=== PATIENT | male | born 1975 | race Caucasian/White ===

== ENCOUNTER 2019-07-01 10:16 | Emergency (ER) | payer OTHER, SELFPAY ==
[2019-07-01 10:25] VITALS: BP 157/99; PULSE 75; RESP 16; TEMP 36.6; O2SAT 99; BMI 32.1
[2019-07-01 11:10] VITALS: BP 142/85; PULSE 72; RESP 13; O2SAT 97
[2019-07-01 11:35] VITALS: BP 140/82; PULSE 82; RESP 17; O2SAT 98
[2019-07-01 11:42] LABS: Add Manual Diff / Slide Review NO; Basophils Absolute Auto 100 /uL (0-100); Basophils Percent Auto 0.5 % (0-2); Eosinophils Absolute Auto 0 /uL (0-450); Eosinophils Percent Auto 0.2 % (2-4); Hemoglobin 15.4 g/dL (13.5-17.5); Lymphocytes Absolute Auto 1400 /uL (1100-4500); Lymphocytes Percent Auto 9.7 % (25-40); Mean Corpuscular Hemoglobin 29.9 PG (26-34); Mean Corpuscular Volume 85.4 fL (80-100); Monocytes Absolute Auto 700 /uL (0-900); Monocytes Percent Auto 4.6 % (3-14); Neutrophils Absolute Auto 12100 /uL (1500-7000); Platelet Count 277 X10^3/uL (150-400); Red Blood Cell Count 5.14 X10^6/uL (4.5-5.9); Red Cell Distribution Width 13.1 % (11.6-14.8); White Blood Cell Count 14.3 X10^3/uL (4.5-11.0)
[2019-07-01 11:47] LABS: Alanine Aminotransferase 20 IU/L (<50); Albumin 5.1 g/dL (3.5-5.0); Albumin Globulin Ratio 1.5 (1.0-2.8); Alkaline Phosphatase 44 U/L (38-126); Aspartate Aminotransferase 29 IU/L (17-59); BUN Creatinine Ratio 18.6 (6-22); Bilirubin Total 0.7 mg/dL (0.2-1.3); Blood Urea Nitrogen 13 mg/dL (9-20); Calcium 10.1 mg/dL (8.4-10.2); Carbon Dioxide 29 mmol/L (22-32); Chloride 102 mmol/L (98-107); Estimated Glomerular Filt Rate > 60.0 mL/min (>60); Globulin 3.3 g/dL (1.7-4.1); Glucose 131 mg/dL (70-100); HEMOLYSIS 34 (0-50); Potassium 4.2 mmol/L (3.4-5.1); Sodium 141 mmol/L (137-145); Total Protein 8.4 g/dL (6.3-8.2)
--- NOTE | 2019-07-01 11:49 | DI.CT.S_ITS ---
PROCEDURE: CT HEAD/BRAIN WO CON INDICATIONS: dizziness and nausea, no hx of vertigo TECHNIQUE: Noncontrast 4.5 mm thick angled axial sections acquired from the foramen magnum to the vertex, with coronal and sagittal reformats. For radiation dose reduction, the following was used: automated exposure control, adjustment of mA and/or kV according to patient size. COMPARISON: None. FINDINGS: Image quality: Excellent. CSF spaces: Basal cisterns are patent. No extra-axial fluid collections. Ventricles are normal in size and shape. Brain: No midline shift. No intracranial masses or hemorrhage. Rogers-white matter interface is normal. Skull and face: Calvarium and visualized facial bones are intact, without suspicious lesions. Sinuses: Visualized sinuses and mastoids are clear. IMPRESSION: No acute intracranial disease process. Dictated by: Mimi Vera MD, PhD on 07/01/2019 at 12:19 Approved by: Mimi Vera MD, PhD on 07/01/2019 at 12:21
--- NOTE | 2019-07-01 11:49 | DI.RAD.S_ITS ---
PROCEDURE: XR CHEST 2V INDICATIONS: chest pain TECHNIQUE: 2 views of the chest were acquired. COMPARISON: None. FINDINGS: Surgical changes and devices: None. Lungs and pleura: Low lung volumes. Lungs appear clear. No pleural effusions or pneumothorax. Mediastinum: Mediastinal contours are normal. Heart size is normal. Bones and chest wall: No suspicious bony abnormalities. Soft tissues appear unremarkable. IMPRESSION: No acute cardiopulmonary abnormality. Dictated by: Albino Barrios M.D. on 07/01/2019 at 12:08 Approved by: Albino Barrios M.D. on 07/01/2019 at 12:08
[2019-07-01 12:06] LABS: D Dimer < 200 ng/mL (<230)
[2019-07-01] MEDS: ONDANSETRON 4 MG/2 ML INJ IV (12:11)
[2019-07-01] MEDS: diazePAM 10 MG/2 ML SYRINGE 2 MG IV (12:11)
[2019-07-01 12:14] VITALS: BP 140/83; PULSE 73; RESP 16; O2SAT 95
[2019-07-01 12:15] LABS: Creatine Kinase 97 U/L (55-170)
[2019-07-01 12:29] LABS: Troponin I < 0.012 ng/mL (0.01-0.034)
--- NOTE | 2019-07-01 13:17 | ED_ITS ---
HPI - Dizziness <Carlos MunozJUNIOR - Last Filed: 07/02/19 02:53> General Chief Complaint: Dizziness Stated Complaint: Dizzy,nausea Time Seen by Provider: 07/01/19 11:31 Source: patient Mode of arrival: Ambulatory Limitations: no limitations History of Present Illness HPI Narrative: This is 43-year-old gentleman, nonsmoker, who presents to ED with significant other with chief complain of dizziness. Patient reports he has experienced intermittent mild room spinning sensation which started last weekend. However, when patient woke up this morning he felt severe spinning sensation which progressively when he was taking a shower. Patient reports associated nausea and feeling sweaty symptoms but no vomiting. Patient reports room spinning sensation gets worse with the movements of head and eyes. Patient denies recent cold symptoms or ear pressure. Patient also states he had intermittent left-sided chest pressure last couple of months and heartburn sensation. Patient reports taking deep breaths increases chest discomfort. Patient denies history of blood clots or recent long travel. Patient denies breathing difficulty, history of GERD. Patient has history of hypertension and denies being evaluated by his primary care physician for this. Related Data Home Medications Medication Instructions Recorded Confirmed losartan-hydrochlorothiazide 1 tab PO DAILY 07/01/19 07/01/19 multivitamin 1 tab PO DAILY 07/01/19 07/01/19 Previous Rx's Medication Instructions Recorded meclizine 25 mg PO QID PRN #14 tab 07/01/19 ondansetron HCl [Zofran] 4 mg PO Q6H PRN #10 tab 07/01/19 Allergies Allergy/AdvReac Type Severity Reaction Status Date / Time No Known Drug Allergies Allergy Verified 07/01/19 10:33 Review of Systems <Carlos Munoz SALES TRAINING MANAGER - Last Filed: 07/02/19 02:53> Review of Systems Narrative: General: Denies fever, chills, fatigue, malaise, sweats. HEENT: Denies sinus pain, ear pain, sore throat, difficulty swallowing, dizziness. Respiratory: Denies dyspnea, cough, wheezing, hemoptysis, sputum. Cardiovascular: See HPI Gastrointestinal: Reports nausea. Denies vomiting, abdominal pain, diarrhea, constipation, melena. : Denies dysuria, frequency, incontinence, hematuria, urinary retention. Musculoskeletal: Denies weakness, joint pain or bony pain. Skin: Denies rash, skin lesions, or other. Neurologic: See HPI Psychiatric: No concerning psychosocial issues. 12-point review of systems is negative except for those stated above. Patient History <Carlos SueJUNIOR weinstein - Last Filed: 07/02/19 02:53> Social History Smoking Status: Never smoker alcohol intake frequency: holidays/special occasions only Substance Use Type: does not use Exam <Carlos SueJUNIOR weinstein - Last Filed: 07/02/19 02:53> Narrative Exam Narrative: GEN: Alert, oriented x 3, well appearing and nourished, and in no acute distress. Head: Normal cephalic, atraumatic. No scalp or temporal tenderness, palpable mass or rash. EYES: Pupils are equal, round, and reactive to light and accommodation. Extraocular muscles are intact bilaterally. There is no subconjunctival hemorrhage, exudate and sclera non-icteric. ENT: Bilateral auditory canals and tympanic membranes clear. Hearing grossly intact. Nose without bleeding, purulent discharge, septal hematoma or deviation. Turbinate without erythema or swelling. Facial sinuses nontender to palpate. Mucous membrane moist, no mucosal lesion. Throat without erythema, tonsillar hypertrophy or exudate. Uvula in midline, airway patent. Neck: Trachea in midline. No JVD, non-tender without lymphadenopathy. No masses or thyroid megaly. Supple, non-tender and no meningeal signs. CARDIAC: Normal regular rate and rhythm without murmurs, gallops, or rubs. No chest wall tenderness. No peripheral edema, cyanosis or pallor. Capillary refill is less than 2 seconds. No carotid bruits. RESPIRATORY: Lungs are cleat to auscultate bilaterally. No cough, wheezes, rales, or rhonchi. No stridor, respiratory distress, increase work of breathing, or accessary muscle used. ABD: Abdomen soft, nontender and non-distended. No guarding or rebound tenderness to palpate. Bowel sounds are normal in all 4 quadrants. There is no palpable masses or organomegaly. EXT: Full painless ROM of all extremities with no loss of sensation, strength, effusion or edema. SKIN: Warm, dry, normal color for patient. No erythema, lesions or rash. BACK: Nontender without deformity or crepitance. No flank tenderness. NEUROLOGICAL: Alert and oriented to place, time and person. No facial droops, dysphasia. CN II-XII intact. Strength and sensation symmetric and intact throughout. Reflexes 2+ throughout. Cerebellar testing normal. PSYCHIATRIC: Good judgement and reason, without hallucinations, abnormal affect or abnormal behaviors during the examination. Patient is not suicidal. Initial Vital Signs Initial Vital Signs: Vital Signs Temperature 97.8 F 07/01/19 10:25 Pulse Rate 75 07/01/19 10:25 Respiratory Rate 16 07/01/19 10:25 Blood Pressure 157/99 H 07/01/19 10:25 Pulse Oximetry 99 07/01/19 10:25 <Brooklyn Coffman DO - Last Filed: 07/02/19 07:09> Initial Vital Signs Initial Vital Signs: Vital Signs Temperature 97.8 F 07/01/19 10:25 Pulse Rate 75 07/01/19 10:25 Respiratory Rate 16 07/01/19 10:25 Blood Pressure 157/99 H 07/01/19 10:25 Pulse Oximetry 99 07/01/19 10:25 Scores <[facility] Center[facility] Haji - Last Filed: 07/02/19 02:53> GCS [place] coma scale eye opening: Spontaneous [place] coma scale verbal response: Orientated [place] coma scale motor response: Obey commands Chap[place] coma scale total score: 15 HEART Score Heart Score history: Slightly Suspicious Heart Score EKG: Normal Heart Score Age: < 45 years old Heart Score risk factors: 1-2 risk factors Heart Score troponin: < or = to normal limit Heart Score Total: 1 NIH Stroke Scale Level of Conciousness: Alert, keenly responsive Ask month/age: Answers both questions correctly. Open/close eyes, close hand: Performs both tasks correctly Best gaze horizontal: Normal Visual seth: No visual loss Facial palsy: Normal symetrical movement Left arm drift: No drift for full 10 sec Right arm drift: No drift for full 10 sec Left leg drift: No drift for full 10 sec Right leg drift: No drift for full 10 sec Limb ataxia: Absent Sensory on face/arms/legs: Normal, no sensory loss Best language: No aphasia, normal Dysarthria: Normal Extinction or inattention: No abnormality Total NIH Stroke scale score: 0 Course <JUNIOR Choi - Last Filed: 07/02/19 02:53> Orders Ordered: Discontinued Medications Diazepam (Valium) 2 mg IV NOW ONE Stop: 07/01/19 11:52 Last Admin: 07/01/19 12:11 Dose: 2 mg Documented by: RISHI Meclizine HCl (Antivert) 25 mg PO NOW ONE Stop: 07/01/19 12:58 Last Admin: 07/01/19 13:38 Dose: 25 mg Documented by: DEYA Ondansetron HCl (Zofran) 4 mg IV NOW ONE Stop: 07/01/19 11:50 Last Admin: 07/01/19 12:11 Dose: 4 mg Documented by: RISHI Reevaluation(s) Reevaluation #1: mildly improved dizziness. resolved nausea Time: 13:35 Reevaluation #2: able to ambulate and states dizziness improved Time: 14:05 Vital Signs Vital signs: Vital Signs - 8 hr 07/01/19 10:25 07/01/19 11:10 07/01/19 11:35 Temperature 97.8 F Pulse Rate 75 72 82 Respiratory Rate 16 13 17 Blood Pressure 157/99 H Blood Pressure [Right Arm] 142/85 H 140/82 Pulse Oximetry 99 97 98 07/01/19 12:14 07/01/19 13:21 Temperature Pulse Rate 73 69 Respiratory Rate 16 14 Blood Pressure Blood Pressure [Right Arm] 140/83 127/71 Pulse Oximetry 95 96 <Brooklyn Coffman DO - Last Filed: 07/02/19 07:09> Orders Ordered: Discontinued Medications Diazepam (Valium) 2 mg IV NOW ONE Stop: 07/01/19 11:52 Last Admin: 07/01/19 12:11 Dose: 2 mg Documented by: RISHI Meclizine HCl (Antivert) 25 mg PO NOW ONE Stop: 07/01/19 12:58 Last Admin: 07/01/19 13:38 Dose: 25 mg Documented by: DEYA Ondansetron HCl (Zofran) 4 mg IV NOW ONE Stop: 07/01/19 11:50 Last Admin: 07/01/19 12:11 Dose: 4 mg Documented by: RISHI Vital Signs Vital signs: Vital Signs - 8 hr 07/01/19 10:25 07/01/19 11:10 07/01/19 11:35 Temperature 97.8 F Pulse Rate 75 72 82 Respiratory Rate 16 13 17 Blood Pressure 157/99 H Blood Pressure [Right Arm] 142/85 H 140/82 Pulse Oximetry 99 97 98 07/01/19 12:14 07/01/19 13:21 Temperature Pulse Rate 73 69 Respiratory Rate 16 14 Blood Pressure Blood Pressure [Right Arm] 140/83 127/71 Pulse Oximetry 95 96 MDM - Dizziness <Carlos Figueroa-MaxwellJUNIOR weinstein - Last Filed: 07/02/19 02:53> Differential Diagnosis Differential diagnosis: Likely benign paroxysmal positional vertigo, cerebrovascular accident and other (ACS, atypical chest pain, GERD) Medical Records Attestation: I reviewed the patient's medical records. Lab Data Attestation: I reviewed the patient's lab results. Result diagrams: 07/01/19 10:31 07/01/19 10:31 Labs: Lab Results 07/01/19 07/01/19 07/01/19 Range/Units 10:31 10:31 10:31 WBC 14.3 H (4.5-11.0) X10^3/uL RBC 5.14 (4.5-5.9) X10^6/uL Hgb 15.4 (13.5-17.5) g/dL Hct 44.0 (41-53) % MCV 85.4 (80-100) fL MCH 29.9 (26-34) PG MCHC 35.0 (30-36) % RDW 13.1 (11.6-14.8) % Plt Count 277 (150-400) X10^3/uL Neut % (Auto) 85.0 H (50-75) % Lymph % (Auto) 9.7 L (25-40) % [place] % (Auto) 4.6 (3-14) % Eos % (Auto) 0.2 L (2-4) % Baso % (Auto) 0.5 (0-2) % Neut # (Auto) 58214 H (4537-6851) /uL Lymph # (Auto) 1400 (2069-4301) /uL [place] # (Auto) 700 (0-900) /uL Eos # (Auto) 0 (0-450) /uL Baso # (Auto) 100 (0-100) /uL PT 12.0 (10.1-12.7) SECONDS INR 1.0 (0.9-1.3) D-Dimer (<230) ng/mL Sodium 141 (137-145) mmol/L Potassium 4.2 (3.4-5.1) mmol/L Chloride 102 (98-107) mmol/L Carbon Dioxide 29 (22-32) mmol/L BUN 13 (9-20) mg/dL Creatinine 0.70 (0.66-1.25) mg/dL Estimated GFR > 60.0 (>60) mL/min BUN/Creatinine Ratio 18.6 (6-22) Glucose 131 H (70-100) mg/dL Calcium 10.1 (8.4-10.2) mg/dL Total Bilirubin 0.7 (0.2-1.3) mg/dL AST 29 (17-59) IU/L ALT 20 (<50) IU/L Alkaline Phosphatase 44 (38-126) U/L Total Creatine Kinase (55-170) U/L CK-MB (CK-2) CK-MB (CK-2) Rel Index Troponin I (0.01-0.034) ng/mL Total Protein 8.4 H (6.3-8.2) g/dL Albumin 5.1 H (3.5-5.0) g/dL Globulin 3.3 (1.7-4.1) g/dL Albumin/Globulin Ratio 1.5 (1.0-2.8) 07/01/19 07/01/19 Range/Units 10:31 10:31 WBC (4.5-11.0) X10^3/uL RBC (4.5-5.9) X10^6/uL Hgb (13.5-17.5) g/dL Hct (41-53) % MCV (80-100) fL MCH (26-34) PG MCHC (30-36) % RDW (11.6-14.8) % Plt Count (150-400) X10^3/uL Neut % (Auto) (50-75) % Lymph % (Auto) (25-40) % [place] % (Auto) (3-14) % Eos % (Auto) (2-4) % Baso % (Auto) (0-2) % Neut # (Auto) (2590-8973) /uL Lymph # (Auto) (1194-0822) /uL [place] # (Auto) (0-900) /uL Eos # (Auto) (0-450) /uL Baso # (Auto) (0-100) /uL PT (10.1-12.7) SECONDS INR (0.9-1.3) D-Dimer < 200 (<230) ng/mL Sodium (137-145) mmol/L Potassium (3.4-5.1) mmol/L Chloride (98-107) mmol/L Carbon Dioxide (22-32) mmol/L BUN (9-20) mg/dL Creatinine (0.66-1.25) mg/dL Estimated GFR (>60) mL/min BUN/Creatinine Ratio (6-22) Glucose (70-100) mg/dL Calcium (8.4-10.2) mg/dL Total Bilirubin (0.2-1.3) mg/dL AST (17-59) IU/L ALT (<50) IU/L Alkaline Phosphatase (38-126) U/L Total Creatine Kinase 97 (55-170) U/L CK-MB (CK-2) TNP CK-MB (CK-2) Rel Index TNP Troponin I < 0.012 (0.01-0.034) ng/mL Total Protein (6.3-8.2) g/dL Albumin (3.5-5.0) g/dL Globulin (1.7-4.1) g/dL Albumin/Globulin Ratio (1.0-2.8) Imaging Data Chest x-ray: Radiologist's impression: [address] [address] XRay Report Signed Patient: Uday Thorpe OMR#: [id number] : 1975Acct:[id number] Age/Sex: 43 / MDate of Service: 07/01/19 Loc: ED Accession Number: [id number] Procedure: XR chest 2V Ordering Provider: Carlos Munoz PROCEDURE: XR CHEST 2V INDICATIONS: chest pain TECHNIQUE: 2 views of the chest were acquired. COMPARISON: None. FINDINGS: Surgical changes and devices: None. Lungs and pleura: Low lung volumes. Lungs appear clear. No pleural effusions or pneumothorax. Mediastinum: Mediastinal contours are normal. Heart size is normal. Bones and chest wall: No suspicious bony abnormalities. Soft tissues appear unremarkable. IMPRESSION: No acute cardiopulmonary abnormality. Dictated by: Albino Barrios M.D. on 07/01/2019 at 12:08 Approved by: Albino Barrios M.D. on 07/01/2019 at 12:08 CT scan - head: Radiologist's impression: [address] [address] [address] Scan Report Signed Patient: Uday Thorpe OMR#: [id number] : 1975Acct:[id number] Age/Sex: 43 / MDate of Service: 07/01/19 Loc: ED Accession Number: [id number] Procedure: CT head/brain wo con Ordering Provider: Carlos Munoz PROCEDURE: CT HEAD/BRAIN WO CON INDICATIONS: dizziness and nausea, no hx of vertigo TECHNIQUE: Noncontrast 4.5 mm thick angled axial sections acquired from the foramen magnum to the vertex, with coronal and sagittal reformats. For radiation dose reduction, the following was used: automated exposure control, adjustment of mA and/or kV according to patient size. COMPARISON: None. FINDINGS: Image quality: Excellent. CSF spaces: Basal cisterns are patent. No extra-axial fluid collections. Ventricles are normal in size and shape. Brain: No midline shift. No intracranial masses or hemorrhage. Rogers-white matter interface is normal. Skull and face: Calvarium and visualized facial bones are intact, without suspicious lesions. Sinuses: Visualized sinuses and mastoids are clear. IMPRESSION: No acute intracranial disease process. Dictated by: Mimi Vera MD, PhD on 07/01/2019 at 12:19 Approved by: Mimi Vera MD, PhD on 07/01/2019 at 12:21 ECG Data Attestation: I personally reviewed and interpreted this ECG as follows: Interpretation: Sinus rhythm rate at 72. Normal [place]. No ST elevation or depression MDM Narrative Medical decision making narrative: This is 43-year-old gentleman who has no history of vertigo presents to ED with the room spinning sensation which she started last weekend. Patient reports this morning when he woke up the vertigo sensation got worse with nausea. Patient did not have any focal neurological deficit and his neuro exam was unremarkable. EKG was normal sinus rhythm. Patient also states intermittent chest pressure for a couple of months once during afternoon which worsens with taking a deep breath. Head CT was obtained since patient has no history of non vertigo. No acute findings were seen on head CT. Chest x-ray was unremarkable as well. Patient had mildly elevated white count with left shift for unknown etiology. Otherwise, chemistry was unremarkable including normal D-dimer with negative cardiac enzymes. Patient was medicated with IV Valium, Zofran with limited effect. Patient medicated with Antivert additionally and he reported improved in dizziness. Patient discharged to home with Antivert and Zofran if his symptoms recur. Patient was able to ambulate without difficulty in stable gait in ED. Patient's HEART score was 1. Patient advised to follow up with his primary care physician for chest pain as out patient with possible stress test and possible a referral to physical therapist if vertigo persists. Patient verbalized understanding and agrees with the treatment plan. <Brooklyn Coffman DO - Last Filed: 07/02/19 07:09> Lab Data Labs: Lab Results 07/01/19 07/01/19 07/01/19 Range/Units 10:31 10:31 10:31 WBC 14.3 H (4.5-11.0) X10^3/uL RBC 5.14 (4.5-5.9) X10^6/uL Hgb 15.4 (13.5-17.5) g/dL Hct 44.0 (41-53) % MCV 85.4 (80-100) fL MCH 29.9 (26-34) PG MCHC 35.0 (30-36) % RDW 13.1 (11.6-14.8) % Plt Count 277 (150-400) X10^3/uL Neut % (Auto) 85.0 H (50-75) % Lymph % (Auto) 9.7 L (25-40) % [place] % (Auto) 4.6 (3-14) % Eos % (Auto) 0.2 L (2-4) % Baso % (Auto) 0.5 (0-2) % Neut # (Auto) 87456 H (5289-1875) /uL Lymph # (Auto) 1400 (9870-0521) /uL [place] # (Auto) 700 (0-900) /uL Eos # (Auto) 0 (0-450) /uL Baso # (Auto) 100 (0-100) /uL PT 12.0 (10.1-12.7) SECONDS INR 1.0 (0.9-1.3) D-Dimer (<230) ng/mL Sodium 141 (137-145) mmol/L Potassium 4.2 (3.4-5.1) mmol/L Chloride 102 (98-107) mmol/L Carbon Dioxide 29 (22-32) mmol/L BUN 13 (9-20) mg/dL Creatinine 0.70 (0.66-1.25) mg/dL Estimated GFR > 60.0 (>60) mL/min BUN/Creatinine Ratio 18.6 (6-22) Glucose 131 H (70-100) mg/dL Calcium 10.1 (8.4-10.2) mg/dL Total Bilirubin 0.7 (0.2-1.3) mg/dL AST 29 (17-59) IU/L ALT 20 (<50) IU/L Alkaline Phosphatase 44 (38-126) U/L Total Creatine Kinase (55-170) U/L CK-MB (CK-2) CK-MB (CK-2) Rel Index Troponin I (0.01-0.034) ng/mL Total Protein 8.4 H (6.3-8.2) g/dL Albumin 5.1 H (3.5-5.0) g/dL Globulin 3.3 (1.7-4.1) g/dL Albumin/Globulin Ratio 1.5 (1.0-2.8) 07/01/19 07/01/19 Range/Units 10:31 10:31 WBC (4.5-11.0) X10^3/uL RBC (4.5-5.9) X10^6/uL Hgb (13.5-17.5) g/dL Hct (41-53) % MCV (80-100) fL MCH (26-34) PG MCHC (30-36) % RDW (11.6-14.8) % Plt Count (150-400) X10^3/uL Neut % (Auto) (50-75) % Lymph % (Auto) (25-40) % [place] % (Auto) (3-14) % Eos % (Auto) (2-4) % Baso % (Auto) (0-2) % Neut # (Auto) (6567-4881) /uL Lymph # (Auto) (3863-7984) /uL [place] # (Auto) (0-900) /uL Eos # (Auto) (0-450) /uL Baso # (Auto) (0-100) /uL PT (10.1-12.7) SECONDS INR (0.9-1.3) D-Dimer < 200 (<230) ng/mL Sodium (137-145) mmol/L Potassium (3.4-5.1) mmol/L Chloride (98-107) mmol/L Carbon Dioxide (22-32) mmol/L BUN (9-20) mg/dL Creatinine (0.66-1.25) mg/dL Estimated GFR (>60) mL/min BUN/Creatinine Ratio (6-22) Glucose (70-100) mg/dL Calcium (8.4-10.2) mg/dL Total Bilirubin (0.2-1.3) mg/dL AST (17-59) IU/L ALT (<50) IU/L Alkaline Phosphatase (38-126) U/L Total Creatine Kinase 97 (55-170) U/L CK-MB (CK-2) TNP CK-MB (CK-2) Rel Index TNP Troponin I < 0.012 (0.01-0.034) ng/mL Total Protein (6.3-8.2) g/dL Albumin (3.5-5.0) g/dL Globulin (1.7-4.1) g/dL Albumin/Globulin Ratio (1.0-2.8) Discharge Plan Departure Patient Disposition: Home Clinical Impression: Atypical chest pain Benign paroxysmal positional vertigo Qualifiers: Laterality: unspecified laterality Qualified Code(s): H81.10 - Benign paroxysm al vertigo, unspecified ear Discharge Date/Time: 07/01/19 14:29 Instructions: DI for Vertigo, DI for Atypical Chest Pain Activity Restrictions/Additional Instructions: You have been diagnosed with [vertigo sensation and atypical chest pain. CT scan of head was normal. EKG is normal. Lab tests were unremarkable including cardiac enzymes and D-dimer except mildly elevated white count]. What to do: *Take your medications as directed. You are going home with Meclizine/Antivert for dizziness and Zofran for nausea. Please take these medications as needed. Please sleep in recliner next couple of days to help with the dizziness and avoid sudden movement of her head or eyes. *Follow up with your primary care provider in 2-3 days, call for an appointment. Please follow up with her doctor with ongoing chest discomfort and possible a referral to physical therapist for dizziness. Let them know you were seen in the ED and that we asked you to be seen in follow up. *Return to ED if you have any new, worsening, or concerning symptoms, such as [different or worsening chest pain, breathing difficulty, fainting episodes, unable to tolerate fluids, fever, or any acute concerns]. Prescriptions: New meclizine 25 mg tablet,chewable 25 mg PO QID PRN (Reason: dizziness or vertigo) Qty: 14 RF: 0 ondansetron HCl [Zofran] 4 mg tablet 4 mg PO Q6H PRN (Reason: nausea and vomiting) Qty: 10 RF: 0 No Action losartan-hydrochlorothiazide 100-12.5 mg tablet 1 tab PO DAILY RF: 0 multivitamin Tablet 1 tab PO DAILY RF: 0 Referrals: [facility] [Outside]
[2019-07-01 13:21] VITALS: BP 127/71; PULSE 69; RESP 14; O2SAT 96
[2019-07-01] MEDS: MECLIZINE HCL 12.5 MG TABLET 25 MG PO (13:38)
[2019-07-01 14:16] VITALS: BP 128/72; PULSE 80; RESP 18; O2SAT 95
== END 2019-07-01 14:29 | disposition home or self-care (01) ==
PROVIDERS: Emergency Provider Nurse Practitioner Family
DX: R07.89 Other chest pain (principal); H81.10 Benign paroxysmal vertigo, unspecified ear; R11.0 Nausea; R79.89 Other specified abnormal findings of blood chemistry
CPT/HCPCS: 36415; 70450; 71046; 80053; 82550; 84484; 85025; 85379; 85610; 93005; 93010; 93041; 96374; 96375; 99283; 99285; J2405; J3360